=== PATIENT | female | born 2000 | race Caucasian/White ===

== ENCOUNTER 2023-05-19 14:34 | Outpatient (CLI) | payer OTHER ==
[~2023-05-19] VITALS: Ht 157.5 cm; Wt 86.3 kg
[2023-05-19 14:53] VITALS: BP 128/68
[2023-05-19] MEDS ORDERED: HOME MED LIST COMPLETE! XX SCH (15:20)
[2023-05-19] MEDS ORDERED: METOCLOPRAMIDE 10MG TAB PO ONE (15:25)
[2023-05-19] MEDS ORDERED: diphenhydrAMINE 25MG CAP PO ONE (15:25)
[2023-06-14] MEDS ORDERED: ANTIBIOTIC PO (13:22)
== END 2023-05-19 16:01 | disposition home or self-care (01) ==
LOC: M LDO 14:34
PROVIDERS: ATTEND Advanced Practice Midwife
DX: O99.353 Diseases of the nervous system complicating pregnancy, third trimester (principal); Z3A.34 34 weeks gestation of pregnancy; G43.909 Migraine, unspecified, not intractable, without status migrainosus
CPT/HCPCS: 59025; G0463

== ENCOUNTER 2023-06-13 00:24 | Emergency (ER) | payer OTHER ==
[~2023-06-13] VITALS: Ht 157.5 cm; Wt 90.9 kg
[2023-06-13 00:59] LABS: APPEARANCE, URINE CLEAR (CLEAR); BACTERIA, URINE AUTO NEGATIVE (NEGATIVE); BILIRUBIN, URINE AUTO NEGATIVE (NEGATIVE); BLOOD, URINE BLOOD NEGATIVE (NEGATIVE); COLOR, URINE STRAW (YELLOW); GLUCOSE, URINE (UA) AUTO NEGATIVE (NEGATIVE); KETONE, URINE AUTO NEGATIVE (NEGATIVE); LEUKOCYTE ESTERASE, URINE AUTO NEGATIVE (NEGATIVE); MUCUS, URINE SMALL (NEGATIVE); NITRITE, URINE AUTO NEGATIVE (NEGATIVE); PROTEIN, URINE AUTO NEGATIVE (NEGATIVE); RBC, URINE AUTO 0 /HPF (0-3); SPECIFIC GRAVITY URINE AUTO 1.005 (1.002-1.035); SQUAMOUS EPITHELIAL CELL UR AU 0 /HPF (0-6); UROBILINOGEN, URINE AUTO 0.2 mg/dL (0.0-2.0); WBC, URINE AUTO 0 /HPF (0-3)
[2023-06-13] MEDS ORDERED: GNP28TAB2 PO (01:06)
[2023-06-13 03:52] LABS: BASO # 0.1 10^3/uL (0.0-0.2); BASO % 0.4 % (0.0-1.0); EOS # 0.1 10^3/uL (0.0-0.5); EOS % 0.5 % (0.0-3.0); HEMATOCRIT 31.9 % (36.0-47.0); HEMOGLOBIN 9.5 g/dl (12.0-15.5); LYMPH # 2.7 10^3/uL (1.5-5.0); LYMPH % 19.1 % (24.0-44.0); MEAN CORPUSCULAR HEMOGLOBIN 22.7 pg (27.0-33.0); MEAN CORPUSCULAR HGB CONC 29.8 g/dl (32.0-36.5); MEAN CORPUSCULAR VOLUME 76.1 fl (80.0-96.0); MONO # 0.8 10^3/uL (0.0-0.8); MONO % 5.6 % (2.0-8.0); NEUTROPHILS # 10.4 10^3/uL (1.5-8.5); PLATELET COUNT, AUTOMATED 174 10^3/uL (150-450); RED BLOOD COUNT 4.19 10^6/uL (4.00-5.40); WHITE BLOOD COUNT 14.1 10^3/uL (4.0-10.0)
[2023-06-13 04:05] LABS: CREATININE,RANDOM URINE 25.2 MG/DL
[2023-06-13 04:06] LABS: INR 1.12; PARTIAL THROMBOPLASTIN TIME 28.6 SECONDS (24.8-34.2); PROTHROMBIN TIME 14.1 SECONDS (12.5-14.5)
[2023-06-13 04:07] LABS: TOTAL PROTEIN,RANDOM URINE < 6.0 MG/DL (0.0-14.0)
[2023-06-13 04:15] LABS: URIC ACID 6.1 MG/DL (3.1-7.8)
[2023-06-13 04:19] LABS: ALBUMIN 2.8 G/DL (3.2-5.2); ALKALINE PHOSPHATASE 161 U/L (46-116); ALT/SGPT < 9 U/L (7.0-40); AST/SGOT 12 U/L (<34); BILIRUBIN,DIRECT < 0.1 MG/DL (<0.4); BILIRUBIN,TOTAL 0.3 MG/DL (0.3-1.2); BLOOD UREA NITROGEN 8 MG/DL (9-23); CALCIUM LEVEL 8.5 MG/DL (8.5-10.1); CARBON DIOXIDE LEVEL 22 MMOL/L (20-31); CHLORIDE LEVEL 107 MMOL/L (98-107); CREATININE FOR GFR 0.68 MG/DL (0.55-1.30); GLOMERULAR FILTRATION RATE > 60.0 (>60); GLUCOSE, FASTING 79 MG/DL (60-100); MAGNESIUM LEVEL 1.8 MG/DL (1.8-2.4); POTASSIUM SERUM 4.1 MMOL/L (3.5-5.1); SODIUM LEVEL 139 MMOL/L (136-145); TOTAL PROTEIN 6.2 G/DL (5.7-8.2)
[2023-06-13] MEDS ORDERED: LIDOCAINE 1% MDV 20ML VIAL SC ONE (04:20)
[2023-06-13] MEDS ORDERED: CEPHALEXIN 500 MG CAP PO ONE (04:50)
[2023-06-13] MEDS ORDERED: CEPH500C PO (04:56)
[2023-06-13 05:01] VITALS: BP 124/72; TEMP 98.1; O2SAT 100
[2023-06-14] MEDS ORDERED: ANTIBIOTIC PO (13:22)
== END 2023-06-13 05:02 | disposition home or self-care (01) ==
LOC: M ED 00:24
DX: O99.713 Diseases of the skin and subcutaneous tissue complicating pregnancy, third trimester (principal); L03.031 Cellulitis of right toe; Z3A.38 38 weeks gestation of pregnancy

== ENCOUNTER 2023-06-15 10:30 | Inpatient (IN) | payer OTHER ==
[~2023-06-15] VITALS: Ht 157.5 cm; Wt 90.1 kg
[2023-06-15] VITALS (7 sets, daily range): BP systolic 113–125; BP diastolic 58–67; TEMP 96; O2SAT 98
[~2023-06-15 10:30] MED LIST: ANTIBIOTIC PO; CEPH500C PO; GNP28TAB2 PO
[2023-06-15] MEDS ORDERED: TUMS750C5 PO (10:56)
[2023-06-15] MEDS ORDERED: HOME MED LIST COMPLETE! XX SCH (11:00)
[2023-06-15] MEDS ORDERED: LACTATED RINGER'S 1000 ML IV STA (11:47)
[2023-06-15] MEDS ORDERED: BICITRA 30ML SOLN UDC PO ONE (11:50)
[2023-06-15] MEDS ORDERED: LR 1,000 ML IV SCH (11:50)
[2023-06-15] MEDS ORDERED: ceFAZolin SOD 2 GM in IV 1 EA IV ONE (11:50)
[2023-06-15] MEDS ORDERED: TRANEXAMIC ACID INJection 1,000 MG in NS 100 ML IV PRN (11:50)
[2023-06-15] MEDS ORDERED: METHYLERGONOVINE MALEATE 0.2MG/ML 1ML VIAL IM PRN ×2 (11:50→14:40)
[2023-06-15] MEDS ORDERED: OXYTOCIN DRIP 30 UNITS in IV 1 EA IV PRN ×4 (11:50)
[2023-06-15 12:55] LABS: HEMATOCRIT 33.4 % (36.0-47.0); HEMOGLOBIN 9.9 g/dl (12.0-15.5); MEAN CORPUSCULAR HEMOGLOBIN 22.3 pg (27.0-33.0); MEAN CORPUSCULAR HGB CONC 29.6 g/dl (32.0-36.5); MEAN CORPUSCULAR VOLUME 75.4 fl (80.0-96.0); PLATELET COUNT, AUTOMATED 180 10^3/uL (150-450); RED BLOOD COUNT 4.43 10^6/uL (4.00-5.40); WHITE BLOOD COUNT 14.2 10^3/uL (4.0-10.0)
[2023-06-15] MEDS ORDERED: OXYTOCIN 30UNITS IN 0.9% NaCl 500ML IV BAG As Ordered ONE ×3 (13:23→14:27)
[2023-06-15] MEDS ORDERED: ONDANSETRON 4MG 2ML VIAL As Ordered ONE (13:23)
[2023-06-15] MEDS ORDERED: METOCLOPRAMIDE INJ 10MG/2ML VIAL As Ordered ONE (13:23)
[2023-06-15] MEDS ORDERED: KETOROLAC 60MG 2ML VIAL As Ordered ONE (13:23)
[2023-06-15] MEDS ORDERED: MORPHINE PRES-FREE INJ 10 MG/10 ML VIAL As Ordered ONE (13:23)
[2023-06-15] MEDS ORDERED: ACETAMINOPHEN 1000MG 100ML IV BAG As Ordered ONE (13:23)
[2023-06-15] MEDS ORDERED: PHENYLephrine 500MCG 5ML (100MCG/ML) SYRINGE As Ordered ONE ×2 (13:23→13:54)
[2023-06-15 14:16] LABS: CORD GAS ABE A -5.4; CORD GAS HCO3 A 22.7 MMOL/L; CORD GAS O2 SAT A 30.8 %; CORD GAS PCO2 A 54.5 mmHg; CORD GAS PH A 7.238 UNITS; CORD GAS PO2 A 17.3 mmHg; CORD GAS SBC A 18.5 MMOL/L; CORD GAS TCO2 A 24.4 MMOL/L
[2023-06-15 14:18] LABS: CORD GAS ABE V -4.7; CORD GAS O2 SAT V 72.8 %; CORD GAS PCO2 V 41.2 mmHg; CORD GAS PH V 7.325 UNITS; CORD GAS TCO2 V 22.3 MMOL/L
[2023-06-15] MEDS ORDERED: RHOGAM 300MCG (1500IU) INJ IM SCH (14:40)
[2023-06-15] MEDS ORDERED: oxyCODONE 5MG TAB PO PRN ×3 (14:40→15:10)
[2023-06-15] MEDS ORDERED: SIMETHICONE 80MG CHEW TAB PO PRN (14:40)
[2023-06-15] MEDS ORDERED: METOCLOPRAMIDE INJ 10MG/2ML VIAL IV PRN ×2 (14:40→15:10)
[2023-06-15] MEDS ORDERED: OXYTOCIN DRIP 30 UNITS in IV 1 EA IV SCH (15:00)
[2023-06-15] MEDS: LR 1,000 ML IV SCH ×2 (15:05→23:05)
[2023-06-15] MEDS ORDERED: ONDANSETRON 4MG 2ML VIAL IV PRN (15:10)
[2023-06-15] MEDS ORDERED: HYDROMORPHONE HCL 0.5 MG/ 0.5 ML SYRINGE IV PRN (15:10)
[2023-06-15] MEDS ORDERED: MEPERIDINE 25 MG/ML 1ML VIAL IV PRN (15:10)
[2023-06-15] MEDS ORDERED: NALOXONE INJ 0.4MG/1ML VIAL IV PRN ×2 (15:10)
[2023-06-15] MEDS ORDERED: diphenhydrAMINE 50MG/ML VIAL IV PRN (15:10)
[2023-06-15] MEDS ORDERED: fentaNYL 100 MCG/2 ML INJECTION IV PRN (15:10)
[2023-06-15] MEDS ORDERED: **NOTE PATIENT COMMENT** MISC XX SCH (15:10)
[2023-06-15] MEDS ORDERED: oxyCODONE 5MG TAB As Ordered ONE (15:42)
[2023-06-15] MEDS: SLF 3 ML SYR IV SCH ×2 (16:15→23:06)
[2023-06-15] MEDS: ACETAMINOPHEN 500 MG TAB PO SCH (18:17)
[2023-06-15] MEDS: KETOROLAC 30 MG/ML 1ML VIAL IV SCH (20:42)
[2023-06-15] MEDS: DOCUSATE SODIUM 100MG CAPSULE PO SCH (21:00)
[2023-06-16] MEDS: ACETAMINOPHEN 500 MG TAB PO SCH ×4 (01:00→15:44)
[2023-06-16 02:00] VITALS: BP 116/55; O2SAT 98
[2023-06-16] MEDS: KETOROLAC 30 MG/ML 1ML VIAL IV SCH ×2 (02:20→11:43)
[2023-06-16 06:00] VITALS: BP 115/57; O2SAT 97
[2023-06-16 06:31] LABS: HEMATOCRIT 26.2 % (36.0-47.0); MEAN CORPUSCULAR HEMOGLOBIN 22.3 pg (27.0-33.0); MEAN CORPUSCULAR HGB CONC 29.4 g/dl (32.0-36.5); MEAN CORPUSCULAR VOLUME 75.9 fl (80.0-96.0); PLATELET COUNT, AUTOMATED 149 10^3/uL (150-450); RED BLOOD COUNT 3.45 10^6/uL (4.00-5.40); WHITE BLOOD COUNT 17.1 10^3/uL (4.0-10.0)
[2023-06-16 06:40] LABS: HEMOGLOBIN 7.7 g/dl (12.0-15.5)
[2023-06-16] MEDS: LR 1,000 ML IV SCH ×3 (06:40→22:40)
[2023-06-16] MEDS: SLF 3 ML SYR IV SCH (07:10)
[2023-06-16] MEDS: DOCUSATE SODIUM 100MG CAPSULE PO SCH ×2 (09:00→20:52)
[2023-06-16 10:16] VITALS: BP 108/53; O2SAT 98
[2023-06-16] MEDS ORDERED: KETOROLAC 30 MG/ML 1ML VIAL As Ordered ONE (11:38)
[2023-06-16 14:51] VITALS: BP 115/59; O2SAT 99
[2023-06-16] MEDS: PRENATAL VITAMINS CHEWABLE TABLET PO SCH (15:43)
[2023-06-16 17:40] VITALS: BP 130/64; O2SAT 99
[2023-06-16] MEDS: IBUPROFEN 800 MG TAB PO SCH (20:12)
[2023-06-16 22:00] VITALS: BP 131/59
[2023-06-17] MEDS: ACETAMINOPHEN 500 MG TAB PO SCH ×3 (00:32→11:18)
[2023-06-17] MEDS: IBUPROFEN 800 MG TAB PO SCH (04:17)
[2023-06-17] MEDS: DOCUSATE SODIUM 100MG CAPSULE PO SCH (05:02)
[2023-06-17] MEDS: LR 1,000 ML IV SCH (05:48)
[2023-06-17 06:00] VITALS: BP 128/58
[2023-06-17] MEDS ORDERED: MEASLES,MUMPS,RUBELLA VACCINE INJ (MMR-II) SC.IMMUN ONE (09:00)
[2023-06-17] MEDS: PRENATAL VITAMINS CHEWABLE TABLET PO SCH (09:07)
[2023-06-17 10:00] VITALS: BP 130/69; O2SAT 97
== END 2023-06-17 12:20 | disposition home or self-care (01) | DRG 773 ==
LOC: M LDO 10:30 → M LDI 11:37 → M OBS 16:00
PROVIDERS: ADMIT Obstetrics & Gynecology; ATTEND Obstetrics & Gynecology
PROC: 10D00Z1 Extraction of Products of Conception, Low, Open Approach (ICD-10-PCS; principal; 2023-06-15 12:31)
DX: O34.211 Maternal care for low transverse scar from previous cesarean delivery (principal); O75.82 Onset (spontaneous) of labor after 37 completed weeks of gestation but before 39 completed weeks gestation, with delivery by (planned) cesarean section; Z37.0 Single live birth; Z3A.38 38 weeks gestation of pregnancy

== ENCOUNTER 2024-08-08 17:44 | Emergency (ER) | payer OTHER ==
[~2024-08-08] VITALS: Ht 157.5 cm; Wt 77.3 kg
[~2024-08-08 17:44] MED LIST changes: +TUMS750C5 PO
[2024-08-08] MEDS: BOOSTRIX VACCINE (TETANUS/DIPHTH/ACEL. PERTUSSIS) 0.5ML SYR IM ONE (22:06)
[2024-08-08] MEDS ORDERED: LIDOCAINE 1% SDV 30ML VIAL SC SCH (22:50)
[2024-08-08] MEDS: LIDOCAINE 1% MDV 20ML VIAL SC ONE (22:55)
[2024-08-09 00:08] VITALS: BP 133/63; TEMP 100; O2SAT 97
== END 2024-08-09 00:09 | disposition home or self-care (01) ==
LOC: M ED 17:44
DX: S61.213A Laceration without foreign body of left middle finger without damage to nail, initial encounter (principal); Y92.9 Unspecified place or not applicable; Y93.9 Activity, unspecified; Y99.9 Unspecified external cause status; F41.9 Anxiety disorder, unspecified; F32.A Depression, unspecified; F17.290 Nicotine dependence, other tobacco product, uncomplicated; Z23 Encounter for immunization